=== PATIENT | female | born 1990 | race Caucasian/White ===

== ENCOUNTER 2016-03-21 23:20 | Emergency (ER) | payer OTHER ==
[2016-03-21 23:42] VITALS: RESP 18; TEMP 98
[2016-03-21 23:46] LABS: APPEARANCE,URINE Slightly Cloudy; BILIRUBIN,URINE NEGATIVE (NEGATIVE); COLOR,URINE Yellow; GLUCOSE, URINE (UA) NEGATIVE (NEGATIVE); KETONES,URINE NEGATIVE (NEGATIVE); LEUKOCYTE ESTERASE ,URINE NEGATIVE (NEGATIVE); NITRATE,URINE NEGATIVE (NEGATIVE); OCCULT BLOOD,URINE NEGATIVE (NEG-TRACE); PH,URINE 7.5; UROBILINOGEN,URINE 0.2 (0.2-1.0 EU)
[2016-03-22 00:01] LABS: RBC,URINE NEG (0-3AV/HPF); WBC,URINE 0-1 (0-5AV/HPF)
[2016-03-22] MEDS ORDERED: ONDANSETRON 4 MG ODT BU ONE (00:17)
[2016-03-22] MEDS ORDERED: ONDANSETRON 4 MG ODT ONE (00:19)
[2016-03-22 00:22] VITALS: BP 129/72; PULSE 62; O2SAT 98
== END 2016-03-22 00:36 | disposition home or self-care (01) ==
LOC: ED 23:20
DX: A08.4 Viral intestinal infection, unspecified (principal)
CPT/HCPCS: 81001; 84703; 99282; 99283

== ENCOUNTER 2018-03-11 07:05 | Emergency (ER) | payer OTHER ==
[2018-03-11 07:31] VITALS: BP 125/83; PULSE 75; RESP 20; TEMP 98.1; O2SAT 99
[2018-03-11] MEDS ORDERED: NAPROXEN 500 MG TAB PO ONE (08:04)
[2018-03-11] MEDS ORDERED: NAPROXEN 500 MG TAB ONE (08:08)
== END 2018-03-11 08:26 | disposition home or self-care (01) | DRG 552 ==
LOC: ED 07:05
DX: S16.1XXA Strain of muscle, fascia and tendon at neck level, initial encounter (principal); V49.88XA Car occupant (driver) (passenger) injured in other specified transport accidents, initial encounter
CPT/HCPCS: 99282; 99283; A9270-GY

== ENCOUNTER 2018-04-26 07:01 | Emergency (ER) | payer OTHER ==
[2018-04-26 07:06] VITALS: TEMP 98.5; O2SAT 98
[2018-04-26 07:45] LABS: APPEARANCE,URINE Slightly Cloudy; BILIRUBIN,URINE NEGATIVE (NEGATIVE); COLOR,URINE Yellow; GLUCOSE, URINE (UA) NEGATIVE (NEGATIVE); KETONES,URINE NEGATIVE (NEGATIVE); LEUKOCYTE ESTERASE ,URINE TRACE (NEGATIVE); NITRATE,URINE NEGATIVE (NEGATIVE); OCCULT BLOOD,URINE NEGATIVE (NEG-TRACE); UROBILINOGEN,URINE 0.2 (0.2-1.0 EU)
[2018-04-26 08:12] LABS: RBC,URINE 0-2 (0-3AV/HPF)
[2018-04-26 08:13] LABS: BACTERIA 1+ (< 1+); CRYSTALS NEGATIVE (0-3 AVE/HPF)
[2018-04-26 11:12] VITALS: BP 114/84; PULSE 75; RESP 16
== END 2018-04-26 10:47 | disposition home or self-care (01) | DRG 758 ==
LOC: ED 07:01
DX: N76.0 Acute vaginitis (principal); N39.0 Urinary tract infection, site not specified; F45.8 Other somatoform disorders
CPT/HCPCS: 81001; 84703; 87210; 99283; 99284